=== PATIENT | female | born 1975 | race Caucasian/White ===

== ENCOUNTER 2017-12-02 18:48 | Emergency (ER) | payer BC ==
[~2017-12-02] VITALS: Ht 162.6 cm; Wt 61.2 kg
[2017-12-02] MEDS ORDERED: ESTROGEN BLOCKER (19:07)
[2017-12-02] MEDS ORDERED: AVASTIN25 MG/1 ML IV (19:07)
[2017-12-02] MEDS ORDERED: PROPRANOLOL 1010 MG PO (19:07)
[2017-12-02] MEDS ORDERED: LISINOPRIL2.5 MG PO (19:07)
[2017-12-02] MEDS ORDERED: EXCEDRIN MIGRA1 EAC1 PO (19:08)
[2017-12-02] MEDS ORDERED: BUTALB-APAP-CA1 EACH PO (20:52)
[2017-12-02] MEDS ORDERED: PROMS25 WY RECTAL (20:52)
[2017-12-02 21:16] VITALS: BP 142/90
== END 2017-12-02 21:17 | disposition home or self-care (01) ==
LOC: ER 18:48
DX: R51 Headache (principal); R11.2 Nausea with vomiting, unspecified; Z85.43 Personal history of malignant neoplasm of ovary